=== PATIENT | female | born 1985 | race Caucasian/White ===

== ENCOUNTER 2021-08-17 13:12 | Emergency (ER) | payer MEDICAID, OTHER ==
[~2021-08-17] VITALS: Ht 180.3 cm; Wt 50.0 kg
[~2021-08-17 13:12] MED LIST: DOXY-8 PO; LITH600C4 PO; NORG1TAB90 PO
[2021-08-17] MEDS ORDERED: OLANZapine **IM** 10 mg inj. IM ONE (13:50)
--- NOTE | 2021-08-17 13:50 | NUR ---
Escorted to Room 14.
--- NOTE | 2021-08-17 14:00 | NUR ---
Changed into [facility] scrubs. Pt did not want to wear them because they are polyester. She made multiple statements regarding radiation. She believes that her want to kill her. Denies the desire for self harm. Agrees to not harm herself while in our care.
[2021-08-17 14:03] LABS: BASOPHILS # (AUTO) 0.1 X10'3 (0-0.2); BASOPHILS % (AUTO) 0.8 % (0-1); EOSINOPHILS % (AUTO) 0.6 % (0-6); HEMATOCRIT 39.7 % (35.0-45.0); HEMOGLOBIN 13.5 g/dl (12.0-16.0); LYMPHOCYTES # (AUTO) 2.3 X10'3 (1.1-4.8); LYMPHOCYTES % (AUTO) 34.5 % (21-51); MEAN CORPUSCULAR HEMOGLOBIN 32.4 PG (27.0-31.0); MEAN CORPUSCULAR HGB CONC 33.9 g/dL (33.0-36.5); MEAN CORPUSCULAR VOLUME 95.7 FL (78-98); MEAN PLATELET VOLUME 7.7 FL (7.4-10.4); MONOCYTES # (AUTO) 0.5 X10'3 (0-0.9); MONOCYTES % (AUTO) 7.6 % (2-12); NEUTROPHILS # (AUTO) 3.8 X10'3 (1.8-7.7); NEUTROPHILS % (AUTO) 56.5 % (42-75); PLATELET COUNT 292 X10'3 (140-440); RED BLOOD COUNT 4.16 X10'6 (4.20-5.60); RED CELL DISTRIBUTION WIDTH 12.2 % (11.5-14.5); WHITE BLOOD COUNT 6.7 X10'3 (4.5-11.0)
[2021-08-17 14:08] LABS: URINE HCG NEGATIVE (NEG)
[2021-08-17 14:17] LABS: ALANINE AMINOTRANSFERASE 53 U/L (12-78); ALBUMIN 4.7 G/DL (3.4-5.0); ALBUMIN/GLOBULIN RATIO 1.4 (1.1-1.5); ALKALINE PHOSPHATASE 47 IU/L (46-116); ANION GAP 14 (8-16); ASPARTATE AMINO TRANSFERASE 45 U/L (10-37); BILIRUBIN,TOTAL 1.5 MG/DL (0.1-1.0); BLOOD UREA NITROGEN 19 MG/DL (7-18); BUN/CREATININE RATIO 18.8 (6.6-38.0); CALCIUM 9.2 MG/DL (8.5-10.1); CHLORIDE 104 MMOL/L (99-107); CREATININE 1.01 MG/DL (0.40-0.90); ETHANOL < 0.010 GM/DL (0.0-0.010); GLUCOSE 94 MG/DL (70-104); POTASSIUM 3.7 MMOL/L (3.5-5.1); SODIUM 143 MMOL/L (135-145); TOTAL CARBON DIOXIDE 24.8 MMOL/L (24-32); eGFR 62 ML/MIN
[2021-08-17 14:19] LABS: URINE AMPHETAMINE SCREEN POSITIVE (Neg); URINE BARBITUATE SCREEN NEGATIVE (Neg); URINE BENZODIAZEPINES SCREEN NEGATIVE (Neg); URINE CANNABINOID SCREEN NEGATIVE (Neg); URINE COCAINE SCREEN NEGATIVE (Neg); URINE METHADONE SCREEN NEGATIVE (Neg); URINE OPIATE SCREEN POSITIVE (Neg); URINE PHENCYCLIDINE SCREEN NEGATIVE (Neg)
[2021-08-17] MEDS: ketoconazole 2% cream 15gm TP SCH ×2 (14:25→20:14)
--- NOTE | 2021-08-17 14:28 | NUR ---
She is currently wearing a green blanket and underwear only.
[2021-08-17] MEDS ORDERED: LORazepam 2 mg/ml vial IM ONE (14:45)
[2021-08-17] MEDS ORDERED: diphenhydrAMINE 50 mg/ml inj IM ONE (14:45)
--- NOTE | 2021-08-17 14:45 | NUR ---
Pt opens the door to her room and calls out, "I need help. Someone is going to kill me." Gentley reminded seveal times to stay in her room and keep covered. She still will not wear the green scrubs. She attempted to eat the chocolate cake. It is smeared on her face.
--- NOTE | 2021-08-17 15:08 | NUR ---
Patient helped back into [place], states she is drowsy, re assured she is in a safe place, drifted off to sleep. No signs of distress noted.
--- NOTE | 2021-08-17 16:59 | NUR ---
Faxed packet to [facility] @[phone]
--- NOTE | 2021-08-17 17:44 | NUR ---
Report given to BRIE Malagon in [place].
--- NOTE | 2021-08-17 18:34 | NUR ---
The patient was moved from the main ER in bed 25. She was sedated and she immediately fell asleep. She was very somulent. Dinner tray at the bedside. Mental health attempted to interview here but she was too sleepy.
--- NOTE | 2021-08-17 20:47 | NUR ---
The patient was awake briefly but drowsy. She did eat some of her dinner. She currently is back asleep.
--- NOTE | 2021-08-17 22:38 | NUR ---
The patient appears to be sleeping
--- NOTE | 2021-08-18 00:04 | NUR ---
The patient appears to be sleeping
--- NOTE | 2021-08-18 01:59 | NUR ---
The patient appears to be sleeping
--- NOTE | 2021-08-18 03:45 | NUR ---
The patient appears to be sleeping
--- NOTE | 2021-08-18 05:43 | NUR ---
The patient is awake and has fast pressured speech. She continues to talk about radiation and that she believes her changed his name and wants to cause her harm.
--- NOTE | 2021-08-18 06:30 | NUR ---
Pt came up to nurses station and inquired on her belongings and wanting to access them and inquiring how long she is going to be here. Pt updated that she is awaiting to be evaluated by [facility] and belongings are locked up and secure.
[2021-08-18] MEDS: ketoconazole 2% cream 15gm TP SCH ×2 (09:40→19:52)
--- NOTE | 2021-08-18 10:04 | NUR ---
[facility] senior management consultant Ramesh speaking with pt at bedside.
--- NOTE | 2021-08-18 10:32 | NUR ---
Met with patient in regards to substance use and to see if patient was interested in treatment options. Patient feels like she doesn't need any treatment. I gave patient resources in case she changes her mind. I also gave patient my card for the future if she wants help.
--- NOTE | 2021-08-18 15:00 | NUR ---
Pt on hold per [facility] medical equipment repair technician Ramesh.
[2021-08-18] MEDS ORDERED: TRAM50TA2 PO (15:36)
[2021-08-18] MEDS ORDERED: ASCO100T12 PO (15:40)
[2021-08-18] MEDS ORDERED: ZINC50TA67 PO (15:40)
[2021-08-18] MEDS ORDERED: nicotine 14mg patch - 24hr TD ONE (17:00)
--- NOTE | 2021-08-18 17:00 | NUR ---
Pt requested snacks and pt given crackers, yogurt and string cheese.
[2021-08-18] MEDS: traMADol 50MG tablet PO PRN ×2 (17:20→18:36)
[2021-08-18] MEDS ORDERED: OLANZapine 2.5MG tablet PO SCH (20:00)
[2021-08-18] MEDS ORDERED: OLANZAPINE 5 MG TABLET PO SCH (20:00)
--- NOTE | 2021-08-18 20:01 | NUR ---
The patient is pleasant and cooperative. She stated that she feels sad that she is here and not with her children. She denies A/V hallucinations but does admit to feeling paranoid. Patient given med educations on zyprexa and she did take that for her paranoia.
--- NOTE | 2021-08-18 22:22 | NUR ---
The patient appears to be sleeping
--- NOTE | 2021-08-18 22:57 | NUR ---
The patient is paranoid and wanted to change beds. MD made aware and orders received.
[2021-08-18] MEDS ORDERED: haloperidol 5mg tablet PO ONE (23:00)
[2021-08-18] MEDS ORDERED: diphenhydrAMINE 25mg capsule PO ONE (23:00)
--- NOTE | 2021-08-19 00:37 | NUR ---
The patient appears to be sleeping
--- NOTE | 2021-08-19 02:34 | NUR ---
The patient appears to be sleeping
--- NOTE | 2021-08-19 04:21 | NUR ---
The patient appears to be sleeping
--- NOTE | 2021-08-19 05:07 | NUR ---
Client resting on back. Resp even and unlabored.
--- NOTE | 2021-08-19 06:51 | NUR ---
PT RESTING IN SUPINE POSITION WITH EYES CLOSED, EFFORTLESS RESPIRATIONS OBSERVED.
[2021-08-19] MEDS ORDERED: ascorbic acid 500mg tablet PO SCH (08:00)
[2021-08-19] MEDS ORDERED: zinc sulfate 220mg capsule PO SCH (08:00)
[2021-08-19] MEDS: ketoconazole 2% cream 15gm TP SCH (09:30)
--- NOTE | 2021-08-19 09:30 | NUR ---
Pt reports she had rested well and is calm cooperative. Pt given snacks per request as pt was still hungry after eating breakfast tray.
[2021-08-19] MEDS: traMADol 50MG tablet PO PRN (10:02)
[2021-08-19 10:33] LABS: CLARITY,URINE CLOUDY (Clear); COLOR,URINE YELLOW (Yellow); GLUCOSE, URINE NEGATIVE (Neg); KETONES,URINE TRACE mg/dl (Neg); LEUKOCYTE ESTERASE ,URINE TRACE (Neg); NITRITES, URINE NEGATIVE (Neg); OCCULT BLOOD,URINE MODERATE (Neg); PH,URINE 7.5 (4.8-8.0); PROTEIN,URINE NEGATIVE (Neg)
[2021-08-19 10:41] LABS: UA COLLECTION TYPE CLN CATCH MIDSTREAM
[2021-08-19 10:45] LABS: AMORPHOUS PHOSPHATES 4+; BACTERIA,URINE 2+ /HPF (Neg); MUCUS STRANDS MODERATE /LPF (Neg); SQUAMOUS EPITHELIAL CELL,UR MODERATE /LPF (FEW); TRANSITIONAL EPI CELLS,URINE FEW /HPF
--- NOTE | 2021-08-19 12:00 | NUR ---
Morning remains uneventful, pt continues to denie needs/requests and has been pleasantly interactive with conversation.
--- NOTE | 2021-08-19 13:55 | NUR ---
Gave report to [facility] for possible placement. Pt UA and TSH results being faxed over per request.
[2021-08-19] MEDS ORDERED: nicotine 14mg patch - 24hr TD ONE (16:45)
--- NOTE | 2021-08-19 17:59 | NUR ---
Pts spouse here visiting pt at bedside.
[2021-08-19 18:17] VITALS: BP 93/52
--- NOTE | 2021-08-19 19:44 | NUR ---
Transport here for patient, she had several bags of belongings and was told she could only take her clothing and ID. She was not happy about this and was very paranoid that her would get her belongings and use them to harm her. After much back and forth, we were able to get her dressed and off to [facility] in [place].
== END 2021-08-19 19:52 ==
LOC: ER 13:12
DX: F29 Unspecified psychosis not due to a substance or known physiological condition (principal); Z20.822 Contact with and (suspected) exposure to COVID-19; F30.9 Manic episode, unspecified; Z72.0 Tobacco use; Z79.899 Other long term (current) drug therapy
CPT/HCPCS: 36415; 80053; 80305; 80320; 81001; 81025; 84443; 85025; 87088; 87635; 96372; 99285; C9803; J1200; J2060; J3490; Q0163

== ENCOUNTER 2021-09-11 18:02 | Emergency (ER) | payer MEDICAID, OTHER ==
[~2021-09-11] VITALS: Ht 177.8 cm; Wt 45.5 kg
[~2021-09-11 18:02] MED LIST changes: +ASCO100T12 PO; -DOXY-8 PO; -LITH600C4 PO; -NORG1TAB90 PO; +TRAM50TA2 PO; +ZINC50TA67 PO
[2021-09-11] MEDS ORDERED: LORazepam 1 MG tablet PO ONE (18:25)
[2021-09-11 19:05] LABS: URINE HCG NEGATIVE (NEG)
[2021-09-11 19:09] LABS: CLARITY,URINE SLIGHTLY CLOUDY (Clear); COLOR,URINE YELLOW (Yellow); GLUCOSE, URINE NEGATIVE (Neg); KETONES,URINE 15 mg/dl (Neg); LEUKOCYTE ESTERASE ,URINE NEGATIVE (Neg); NITRITES, URINE NEGATIVE (Neg); OCCULT BLOOD,URINE NEGATIVE (Neg); PROTEIN,URINE NEGATIVE (Neg); UROBILINOGEN,URINE 0.2 E.U/dL (0.2-1.0)
[2021-09-11 19:10] LABS: URINE AMPHETAMINE SCREEN NEGATIVE (Neg); URINE BARBITUATE SCREEN NEGATIVE (Neg); URINE BENZODIAZEPINES SCREEN NEGATIVE (Neg); URINE CANNABINOID SCREEN NEGATIVE (Neg); URINE COCAINE SCREEN NEGATIVE (Neg); URINE METHADONE SCREEN NEGATIVE (Neg); URINE OPIATE SCREEN NEGATIVE (Neg); URINE PHENCYCLIDINE SCREEN NEGATIVE (Neg)
[2021-09-11 19:24] LABS: UA COLLECTION TYPE CLN CATCH MIDSTREAM
[2021-09-11 19:25] LABS: MUCUS STRANDS FEW /LPF (Neg); SQUAMOUS EPITHELIAL CELL,UR MODERATE /LPF (FEW)
[2021-09-11 19:29] LABS: BACTERIA,URINE FEW /HPF (Neg); RBC,URINE 0-2 /HPF (0-2); WBC,URINE 0-4 /HPF (0-4)
[2021-09-11 19:32] LABS: BASOPHILS # (AUTO) 0.1 X10'3 (0-0.2); BASOPHILS % (AUTO) 1.2 % (0-1); EOSINOPHILS % (AUTO) 0.3 % (0-6); HEMATOCRIT 36.6 % (35.0-45.0); HEMOGLOBIN 12.7 g/dl (12.0-16.0); LYMPHOCYTES # (AUTO) 1.6 X10'3 (1.1-4.8); MEAN CORPUSCULAR HEMOGLOBIN 32.9 PG (27.0-31.0); MEAN CORPUSCULAR HGB CONC 34.8 g/dL (33.0-36.5); MEAN CORPUSCULAR VOLUME 94.7 FL (78-98); MEAN PLATELET VOLUME 8.4 FL (7.4-10.4); MONOCYTES # (AUTO) 0.4 X10'3 (0-0.9); NEUTROPHILS % (AUTO) 59.5 % (42-75); PLATELET COUNT 286 X10'3 (140-440); RED BLOOD COUNT 3.87 X10'6 (4.20-5.60); RED CELL DISTRIBUTION WIDTH 12.7 % (11.5-14.5)
[2021-09-11 19:44] LABS: ALANINE AMINOTRANSFERASE 78 U/L (12-78); ALBUMIN 4.6 G/DL (3.4-5.0); ALBUMIN/GLOBULIN RATIO 1.5 (1.1-1.5); ALKALINE PHOSPHATASE 52 IU/L (46-116); ANION GAP 14 (8-16); ASPARTATE AMINO TRANSFERASE 42 U/L (10-37); BILIRUBIN,TOTAL 0.9 MG/DL (0.1-1.0); BLOOD UREA NITROGEN 11 MG/DL (7-18); BUN/CREATININE RATIO 13.3 (6.6-38.0); CALCIUM 9.2 MG/DL (8.5-10.1); CHLORIDE 102 MMOL/L (99-107); CREATININE 0.83 MG/DL (0.40-0.90); GLUCOSE 101 MG/DL (70-104); POTASSIUM 3.9 MMOL/L (3.5-5.1); SODIUM 141 MMOL/L (135-145); TOTAL CARBON DIOXIDE 25.4 MMOL/L (24-32); TOTAL PROTEIN 7.7 G/DL (6.4-8.2); eGFR 78 ML/MIN
[2021-09-11 19:46] LABS: ETHANOL < 0.010 GM/DL (0.0-0.010)
[2021-09-11] MEDS ORDERED: nicotine 7mg patch - 24hr TD SCH (21:05)
--- NOTE | 2021-09-11 23:13 | NUR ---
Note jeff in EDM - 09/11/21 at 2318 by RAQUEL Introduced myself and orineted to unit her to unit. Patient admitted to bed 10. able to make needs known. Currently eating snacks. states, " i feel better, just want to sleep." Will continue to monitor.
--- NOTE | 2021-09-12 00:16 | NUR ---
WANTS TO STAY IN THE LOOP WHEN [facility] Addendum: 09/12/21 at 0020 by [facility] COMES TO EVALUATE PT.
[2021-09-12] MEDS ORDERED: LURA40TA2 PO (01:09)
--- NOTE | 2021-09-12 01:37 | NUR ---
pt resting in bed with eyes closed. respirations unlabored. no discomfort or complaints noted. will continue to monitor.
--- NOTE | 2021-09-12 03:27 | NUR ---
woke requesting water. no complaints at this time. will continue to monitor.
[2021-09-12] MEDS ORDERED: traMADol 50MG tablet PO PRN (03:30)
--- NOTE | 2021-09-12 05:05 | NUR ---
patient up to the bathroom. requested a cup of water and fluid. needs met. will continue to monitor.
[2021-09-12] MEDS ORDERED: ascorbic acid 500mg tablet PO SCH (08:00)
[2021-09-12] MEDS ORDERED: zinc sulfate 220mg capsule PO SCH (08:00)
[2021-09-12] MEDS ORDERED: lurasidone 20mg tablet PO SCH (08:00)
[2021-09-12] MEDS ORDERED: LORazepam 1 MG tablet PO ONE (09:10)
--- NOTE | 2021-09-12 18:39 | NUR ---
preparation room worker at bedside
--- NOTE | 2021-09-12 19:10 | NUR ---
Pt was given clothing , got changed, belongings walked out with pt. picked up pt.
[2021-09-12 19:22] VITALS: BP 103/65
== END 2021-09-12 19:10 | disposition home or self-care (01) ==
LOC: ER 18:03
DX: F29 Unspecified psychosis not due to a substance or known physiological condition (principal); Z20.822 Contact with and (suspected) exposure to COVID-19; F17.200 Nicotine dependence, unspecified, uncomplicated; Z72.89 Other problems related to lifestyle; Z79.899 Other long term (current) drug therapy
CPT/HCPCS: 36415; 80053; 80305; 80320; 81001; 81025; 84443; 85025; 87635; 99284; C9803

== ENCOUNTER 2024-08-10 17:25 | Emergency (ER) | payer MEDICAID ==
[~2024-08-10] VITALS: Ht 180.3 cm; Wt 55.4 kg
[~2024-08-10 17:25] MED LIST changes: +LURA40TA2 PO
[2024-08-10 17:29] VITALS: BP 126/61; PULSE 95; RESP 15; O2SAT 96
[2024-08-10] MEDS: penicillin G benzathine 1.2 million unit/2ml syringe IM ONE (17:50)
[2024-08-10] MEDS: PENICILLIN G BENZATHINE 2,400,000 UNIT/4 ML SYRINGE IM ONE (18:39)
[2024-08-10 18:47] VITALS: TEMP 98.9
== END 2024-08-10 19:12 | disposition home or self-care (01) ==
LOC: ER 17:26
DX: Z20.2 Contact with and (suspected) exposure to infections with a predominantly sexual mode of transmission (principal)
CPT/HCPCS: 36415; 86592; 96372; 99283; J0561

== ENCOUNTER 2024-08-17 16:58 | Emergency (ER) | payer MEDICAID ==
[~2024-08-17] VITALS: Ht 180.3 cm; Wt 68.2 kg
[2024-08-17 17:20] VITALS: BP 123/84; PULSE 89; RESP 18; TEMP 98; O2SAT 96
== END 2024-08-17 18:52 | disposition left against medical advice (07) ==
LOC: ER 16:59
DX: Z53.21 Procedure and treatment not carried out due to patient leaving prior to being seen by health care provider (principal)